=== PATIENT | female | born 1950 | race Caucasian/White ===

== ENCOUNTER 2016-12-04 09:20 | Emergency (ER) | payer MEDICARE, MEDICAID ==
[~2016-12-04] VITALS: Ht 157.5 cm; Wt 56.8 kg
[~2016-12-04 09:20] MED LIST: AMLO5TAB2 PO; ARIP5TAB5 PO; ASPI-628 PO; ATEN25TA PO; DIAZ5TAB3 PO; FLUO20CA25 PO; GABA800T2 PO; HYDR-4003 PO; LISI40TA PO; LORA-305 PO; MORP-33 PO; POLY17PO6 PO; TRAZ300T3 PO
[2016-12-04 09:21] VITALS: BP 124/84; PULSE 86; RESP 19; O2SAT 100
--- NOTE | 2016-12-04 09:21 | ED.REPORT ---
HPI-Chest Pain 40 and Over Date of Service Dec 04, 2016 ED Provider: Dr. Anna Pt is a 66 y/o female w/ a hx of CAD, HTN, Alzheimer's, alcohol abuse, presenting to the ED c/o right-sided CP w/ radiation to the back onset 5 days ago. The patient has been experiencing recurrent episodes of syncope which have happened previously but are increasing in frequency within the past 1 week. She was recently placed on Duloxetine and says that many of her medications already make her dizzy s the additional medication may be worsening her condition. She woke up experiencing chest pain 5 days ago which has been gradually worsening since onset and is exacerbated with movement and deep breathing. She says that when she breaths she feels a popping sensation. Pt denies recent illness, cough , fever. She does drink wine daily. Nursing Notes Stated Complaint: SYNCOPE/CHEST PAIN Chief Complaint: Chest Pain Nursing Notes Reviewed: Yes Allergies: Coded Allergies: Penicillins (Verified Allergy, Severe, 06/29/15) Scheduled Atenolol (Atenolol) 25 Mg Tablet 25 MG PO DAILY Duloxetine (Duloxetine) 20 Mg Capsule.dr 20 MG PO DAILY Gabapentin (Gabapentin) 800 Mg Tablet 800 MG PO QID Lisinopril (Lisinopril) 40 Mg Tablet 40 MG PO DAILY Oxycodone (Roxicodone) 5 Mg Tablet 5 MG PO TID Trazodone (Trazodone) 300 Mg Tablet 400 MG PO HS Scheduled PRN Oxycodone (Roxicodone) 5 Mg Tablet 2.5-5 MG PO QID PRN PRN For Pain General Time Seen by MD: 09:26 Chief Complaint Chest pain Hx Obtained From: Patient Arrived By: Walk-in Sudden in Onset?: No Onset Occurred: 5 days ago Symptom Duration: Since onset Location: : Chest right Quality: Painful, Pleuritic Radiation: : Back Migration/Movement: Reports: None Severity: Current: Mild Severity: Maximum: Moderate Similar Sx Previous: No Past Medical History Past Medical History Notes: Admit 06/2015 for Altered LOC, improved with medication holiday Past Medical History CAD HTN Alcoholism Osteoarthritis Alzheimer's ho polysubstance abuse Chronic bradycardia Peripheral neuropathy depression anxiety Past Surgical History Yes - left hip replacement 1989, appendectomy, tubal Smoking History Never Smoker Social History Lives with ex-. 25 years ago, still living together Alcohol Use: 1-3 per day Drug Use: Denies drug use Ambulatory Status Independent Review of Systems Constitutional: Denies: Fever Respiratory: Reports: Pleuritic pain, Denies: Non-productive cough Cardiovascular: Reports: Chest pain GI: Denies: Abdominal pain, Vomiting Neurologic: Reports: Dizziness, Lightheaded, Syncope Complete sys rev & neg: except as marked. Physical Exam Initial Vital Signs Vital Signs (First) Date Time Temp Pulse Resp B/P Pulse Ox O2 Delivery O2 Flow Rate FiO2 12/04/16 09:21 37.0 86 19 124/84 100 Room Air Initial VS: Reviewed, Vital signs normal Head / Eyes: Atraumatic, Normocephalic ENT: Mucous membranes moist, Conjunctiva normal Neck: Full range of motion Extremities: Vascular intact, Neuro intact, No swelling Skin: Warm, Dry, No cyanosis Neurologic: Alert, Oriented, Nonfocal Psychiatric: Mood/affect normal, Behavior normal, Normal thought content General/Constitutional: Awake, Alert, No acute distress, Cooperative, Not toxic appearing Appearance / Presentation: Positive: Uncomfortable Respiratory / Chest: Atraumatic, Breath sounds NL, Breath sounds = bilat, No respiratory distress, No rales, No rhonchi, No wheezing, No stridor, No chest wall deformity, No crepitus Right chest wall tenderness, reproducible Cardiovascular: Heart rate NL, Regular rhythm, Heart sounds NL, No gallop, No murmurs, No rubs, Pulses = bilaterally Abdomen: Soft, Non-tender, No guarding, No rebound, No distention Interpretation & Diagnostics Lab Results Interpretation Result Diagram: 12/04/16 0925 12/04/16 0925 Test 12/04/16 09:25 White Blood Count 4.5th/mm3 (3.8-10.1) Red Blood Count 2.84mil/mm3 (3.90-5.20) Hemoglobin 11.0g/dL (12.0-15.6) Hematocrit 32.6% (35.0-46.0) Mean Corpuscular Volume 114.8fL (81-100) Mean Corpuscular Hemoglobin 38.7pg (27.0-35.0) Mean Corpuscular Hemoglobin Concent 33.7% (32.0-37.0) Red Cell Distribution Width 13.0% (12.3-15.4) Platelet Count 157bil/L (150-400) Neutrophils (%) (Auto) 63.3% (40-74) Lymphocytes (%) (Auto) 30.7% (14-46) Monocytes (%) (Auto) 4.9% (4-12) Eosinophils (%) (Auto) 0.7% (0-5) Basophils (%) (Auto) 0.2% (0-3) Sodium Level 134mEq/L (134-144) Potassium Level 4.2mEq/L (3.5-5.2) Chloride Level 92mEq/L (97-108) Carbon Dioxide Level 23mmol/L (18-29) Blood Urea Nitrogen 15mg/dL (8-27) Creatinine 0.81mg/dL (0.57-1.00) Estimat Glomerular Filtration Rate 102mL/min (>59) Glucose Level 132mg/dL (60-99) Calcium Level 10.1mg/dL (8.5-10.1) Magnesium Level 1.8mg/dL (1.6-2.6) Total Bilirubin 0.5mg/dL (0.0-1.2) Aspartate Amino Transf (AST/SGOT) 29U/L (0-50) Alanine Aminotransferase (ALT/SGPT) 9U/L (0-32) Alkaline Phosphatase 38U/L (25-165) Troponin T 0.010ug/L (0.0-0.011) Total Protein 7.3g/dL (6.4-8.4) Albumin 4.5g/dL (3.4-5.0) Alcohols 29mg/dL (0-10) ECG Interpretation ECG Interpretation: Sinus rhythm rate 88 T wave inversion isolated to V2 Time: 09:32 Interpreted by: ED physician Normal ECG Interpretation: No acute ischemic changes X-Ray Chest Interpretation Chest Xray Interpretation: IMPRESSION: No acute pulmonary process. Dictated by: Tara Georges M.D. on 12/04/2016 at 10:15 Approved by: Tara Georges M.D. on 12/04/2016 at 10:15 View: Portable, 1 view Interpretation / Wet Read by: Interpret - Radiologist CT Chest Interpretation IMPRESSION: 1. No visualized pulmonary embolism. 2. Lungs are clear. 3. Low attenuation foci, nonspecific. Thyroid ultrasound may be obtained as clinically indicated for additional evaluation. Dictated by: Tara Georges M.D. on 12/04/2016 at 10:59 Approved by: Tara Georges M.D. on 12/04/2016 at 11:02 ADDENDUM: COMPARISON: [facility], CT, PE STUDY (CTA CHEST), 03/09/2014, 13:28. The above study was reviewed with Dr. Joaquin Man on 12/04/16 at 11:10 AM. There is slight irregularity of the anterior right second rib as well as cortical offset of the anterior left third rib. Given patient's history of anterior chest pain, findings are suspected to be related to subacute rib fractures. Dictated by: Tara Georges M.D. on 12/04/2016 at 11:12 Approved by: Tara Georges M.D. on 12/04/2016 at 11:13 Study type: CT pulm angiogram Interpretation / Wet Read by: Interpret - Radiologist Re-Eval/Medical Decision Med Decision/Clinical Course Patient presents complaining of right sided focal sharp chest wall pain. This seems to correlate to a anterior rib fracture. Rib fracture likely secondary to a fall. Patient states that her syncopal episodes are not new and have been previously worked up. There is no evidence of acute coronary syndrome, pulmonary embolism, or other life-threatening pathology at this time. She is neurologically intact without a headache, equal pupils, no indication at this time for a head CT. Will prescribe pain medication. Strongly cautioned about coingestion with alcohol. Return and follow-up precautions given. Source of Hx: Old records Time of Eval: 11:20 Re-Evaluation/Progress Note: Pt rechecked. Discussed imaging and lab findings. Informed pt of plan for discharge. Pt understands and agrees with plan for discharge. F/U instructions and RTER warnings given. All questions addressed. Consultation : Referral / Consult Name: Tara Georges MD Call Returned at: 11:10 Advance Agent: Agrees with eval, Agrees with plan Note: Discussed case with radiologist regarding my wet read of a rib fracture that was not called on the official read. Will review and call back. Counseled Regarding: Diagnosis, Lab results, Need for follow-up, When/why to return to ED Discharge & Departure Primary Impression: Right rib fracture Encounter type: initial encounter Rib fracture type: single rib Fracture type: closed Qualified Code: S22.31XA - Fracture of one rib, right side, initial encounter for closed fracture Additional Impression: Syncopal episodes Syncope type: unspecified Qualified Code: R55 - Syncope and collapse Disposition: Home Discharge Condition All VS Reviewed: Yes Condition: Stable Patient Instructions: Rib Fracture (ED), Syncope (ED) Additional Instructions: The CT scan of your chest showed that you have a rib fracture on the right which I suspect is causing your pain. It is quite small and will only require symptomatic management. Make sure you take multiple deep breaths during the day to ensure you do not develop pneumonia caused sometimes by shallow breaths. Labs and EKG today were reassuring. There is no sign of heart attack or heart muscle damage. I would like you to continue to discuss your episodes of lightheadedness with your primary care doctor. Take Ibuprofen 600 mg every 6 hours as needed for aching pain. Take Oxycodone 1- 2 tabs every 6 hours as needed for severe or breakthrough pain. Do not consume alcohol or other sedating medications, or drive while taking this medication. Return to the emergency department if you develop uncontrolled pain, worsening shortness of breath, fever, severe cough, or for other concerning symptoms. Follow-up with your primary care doctor in 2-3 days for a recheck. Referrals: FRANK VALENCIA DO (PCP) Scribe Attestation Portions of this note were transcribed by Trent Rebollar. I, Dr. Anna personally performed the history, physical exam and medical decision-making; I reviewed and confirmed the accuracy of the information in the transcribed note. copies to: FRANK VALENCIA Timothy S DO Dec 04, 2016 09:21 TRENT REBOLLAR Dec 04, 2016 09:30
[2016-12-04] MEDS ORDERED: Ondansetron 2 mg/mL 2 mL Inj IVPUSH PRN (09:35)
[2016-12-04 09:43] LABS: BASOPHILS % (AUTO) 0.2 % (0-3); EOSINOPHILS % (AUTO) 0.7 % (0-5); MONOCYTES % (AUTO) 4.9 % (4-12); Mean Corpuscular Hemoglobin 38.7 pg (27.0-35.0); Mean Corpuscular Volume 114.8 fL (81-100); NEUTROPHILS % (AUTO) 63.3 % (40-74); Platelet Count 157 bil/L (150-400)
[2016-12-04 09:52] LABS: TROPONIN T 0.01 ug/L (0.0-0.011)
[2016-12-04 10:03] LABS: Magnesium 1.8 mg/dL (1.6-2.6)
--- NOTE | 2016-12-04 10:16 | DRSVH ---
PROCEDURE: X-RAY CHEST ONE VIEW, PORTABLE ([id number]) INDICATIONS: CP TECHNIQUE: One view of the chest was acquired. COMPARISON: [facility], , CHEST 2 VIEW, 11/06/2015, 10:36. FINDINGS: Surgical changes and devices: None. Lungs and pleura: No pleural effusions or pneumothorax. Lungs are clear. Mediastinum: Mediastinal contours appear normal. Heart size is normal. Bones and chest wall: No suspicious bony lesions. Overlying soft tissues appear unremarkable. IMPRESSION: No acute pulmonary process. Dictated by: Tara Georges M.D. on 12/04/2016 at 10:15 Approved by: Tara Georges M.D. on 12/04/2016 at 10:15
[2016-12-04 10:46] VITALS: BP 142/79; PULSE 71; RESP 11; O2SAT 99
[2016-12-04] MEDS ORDERED: OXYC-474 PO ×2 (10:50→11:34)
[2016-12-04] MEDS ORDERED: DULO20CA18 PO (10:50)
[2016-12-04] MEDS ORDERED: GABA800T2 PO (10:50)
--- NOTE | 2016-12-04 11:03 | DRSVH ---
PROCEDURE: CT ANGIO CHEST PULMONARY EMBOLISM ([id number]) INDICATIONS: chest pain TECHNIQUE: After the administration of intravenous contrast, 2 mm thick sections acquired from the pulmonary api sebastien to the posterior costophrenic angles. 3-dimensional maximum intensity projection (MIP) coronal a nd sagittal reformats were then acquired through the thorax. For radiation dose reduction, the follo wing was used: automated exposure control, adjustment of mA and/or kV according to patient size. COMPARISON: [facility], CT, CHEST ANGIO-PE, 09/05/2009, 3:51. FINDINGS: Image quality: Excellent. Pulmonary arteries: Pulmonary arteries are normal in size, and demonstrate no intraluminal filling d efects to suggest central pulmonary embolism. Lungs and pleura: Lungs are clear. No pleural effusions or pneumothorax. Central and peripheral ai rways are patent. Mediastinum: Heart size is normal, without pericardial effusion. No mediastinal or hilar adenopathy . Thoracic aorta is normal in caliber and enhancement. Esophagus is normal in caliber, without hiat al hernia. Bones and chest wall: No suspicious bony lesions. Ribs and thoracic spine appear intact throughout. Thyroid gland bilateral low attenuation foci are present within the thyroid, appearing new since 09/05/09. No axillary or supraclavicular adenopathy. Bilateral breast implants. Abdomen: Visualized upper abdominal solid organs appear normal in the early arterial phase of enhanc ement. IMPRESSION: 1. No visualized pulmonary embolism. 2. Lungs are clear. 3. Low attenuation foci, nonspecific. Thyroid ultrasound may be obtained as clinically indicated for additional evaluation. Dictated by: Tara Georges M.D. on 12/04/2016 at 10:59 Approved by: Tara Georges M.D. on 12/04/2016 at 11:02
[2016-12-04 11:56] VITALS: BP 138/72; PULSE 71; RESP 12; O2SAT 99
== END 2016-12-04 11:57 | disposition home or self-care (01) ==
LOC: SED 09:20
DX: S22.31XA Fracture of one rib, right side, initial encounter for closed fracture (principal); W19.XXXA Unspecified fall, initial encounter; Y93.89 Activity, other specified; Y92.89 Other specified places as the place of occurrence of the external cause; Y99.8 Other external cause status; R55 Syncope and collapse; R42 Dizziness and giddiness; I11.9 Hypertensive heart disease without heart failure; I25.10 Atherosclerotic heart disease of native coronary artery without angina pectoris; F41.8 Other specified anxiety disorders; G30.9 Alzheimer's disease, unspecified; Z96.642 Presence of left artificial hip joint; Z98.890 Other specified postprocedural states; Z88.0 Allergy status to penicillin
CPT/HCPCS: 36415; 71010; 71275; 80053; 83735; 84484; 85025; 93005; 96374; 96375; 96376; 99285; G0480; J2270; J2405; Q9967

== ENCOUNTER → 2016-12-09 | Day surgery (SDC) | payer MEDICARE, MEDICAID ==
[~2016-12-09] VITALS: Ht 157.5 cm; Wt 57.0 kg
[~2016-12-09] MED LIST changes: -AMLO5TAB2 PO; -ARIP5TAB5 PO; -ASPI-628 PO; -DIAZ5TAB3 PO; +DULO20CA18 PO; -FLUO20CA25 PO; -HYDR-4003 PO; +Ketamine 10 mg/mL 20 mL Inj ONE; -LORA-305 PO; +Lactated Ringer's 1,000 ML IV ONE; +Lactated Ringer's 1,000 ML IV SCH; -MORP-33 PO; +MetoCLOpramide 5 mg/mL 2 mL Inj IVPUSH PRN; +OXYC-474 PO; +Ondansetron 2 mg/mL 2 mL Inj IVPUSH PRN; +Ondansetron 2 mg/mL 2 mL Inj ONE; -POLY17PO6 PO; +Propofol 10,000 mCg/mL 20 mL Inj ONE; +fentaNYL-PF 50 mCg/mL 2 mL Inj ONE
--- NOTE | 2016-12-09 07:18 | PCM.HPANE ---
Patient Data Surgeon Admitting Provider: Attending Provider:Bernard Sunshine MD Primary Care Physician:Maame Pitts DO Other Provider:Tatiana Condeingham Anesthesia Reason for Visit Right Upper Quadrant Pain, Acute Alcoholic Ht/WT & BMI Body Mass Index Allergies Coded Allergies: Penicillins (Verified Allergy, Severe, 12/09/16) morphine (Verified Allergy, Unknown, 12/09/16) Past Anesthesia History Anesthesia History: Denies:: Abnormal Airway, Anesthesia Reactions, Difficult Intubation Diabetes History Hx Diabetes?: No MRSA MRSA: No Medications Hypertension Medication: Yes Home Meds Incl Beta Sam: Yes Date Beta Sam Taken: Dec 09, 2016 Time Beta Sam Taken: 03:30 Active Scripts Oxycodone (Roxicodone)5 Mg Tablet2.5-5 Mg PO QID PRN For Pain #12 TABLET Prov:Joaquin Anna DO 12/04/16 Reported Medications Oxycodone (Roxicodone)5 Mg Tablet5 Mg PO TID Ref 0 12/04/16 Gabapentin 800 Mg [id number] Mg PO QID Ref 0 12/04/16 Duloxetine 20 Mg Capsule.dr20 Mg PO DAILY Ref 0 12/04/16 Trazodone 300 Mg Rqjvjv156 Mg PO HS #30 TABLET Ref 0 03/25/14 Lisinopril 40 Mg Tuhcze30 Mg PO DAILY 30 Days Ref 0 03/25/14 Atenolol 25 Mg Mzcgdo79 Mg PO DAILY #30 TABLET Ref 0 03/25/14 Discontinued Reported Medications Aspirin (Aspir 81)81 Mg Tablet.dr81 Mg PO DAILY Ref 0 08/20/14 Morphine Sulfate ER 30 Mg Tablet.er30 Mg PO Q12 08/20/14 Aripiprazole (Abilify)5 Mg Tablet5 Mg PO DAILY 30 Days Ref 0 08/20/14 Hydrocodone-Acetaminophen 5-325 mg 1 Each Tablet1 Each PO Q6 PRN For Pain Ref 0 03/25/14 Gabapentin 800 Mg Uevvcr241 Mg PO TID 30 Days Ref 0 03/25/14 Fluoxetine 20 Mg Bkezagh95 Mg PO DAILY 30 Days 03/25/14 Diazepam 5 Mg Tablet5 Mg PO TID PRN For Anxiety #90 TABLET Ref 0 03/25/14 Amlodipine 5 Mg Tablet5 Mg PO DAILY 30 Days Ref 0 03/25/14 Discontinued Scripts Lorazepam (Ativan)2 Mg Tablet2 Mg PO prn PRN For Alcohol Cessation #10 TABLET Ref 0 2mg ativan as below: 12/02 2mg ativan 6pm and midnight 91 2mg 6am, 2pm, midnight 9/2 2mg 6am, 6pm 93, 1mg (1/2 pill) 6am, 2pm, midnight 9/4, 1mg 6am, 6pm 95 1mg 6am and done Prov:Aleja Hope MD 12/03/15 Hydrocodone-Acetaminophen 5-325 mg 1 Each Tablet1 Tablet PO Q6H PRN For Pain # 15 TABLET Ref 0 Prov:Roman Snell MD 09/22/15 Polyethylene Glycol 3350 (Miralax)17 Gm Powd.pack17 Gm PO DAILY PRN For Constipation #30 Prov:Gabriel Burkett MD 07/02/15 History History of ENT Problems?: No HEENT History: Denies:: Abnormal Airway Cataracts Difficult Intubation Dysphagia Sinus Problem Denture Type: Full- Upper Teeth Condition: Within Normal Limits Hx of Heart Problems?: Yes Cardiovascular History: Positive for:: Chest Pain Denies:: Cardiac Surgery Congestive Heart Failure Edema Heart Murmur Hypertension Irregular Heartbeat Pacemaker Thrombophlebitis Hx of Respiratory Problem?: Yes Respiratory History: Positive for:: Pneumonia Denies:: Asthma COPD Chest Surgery Dyspnea Emphysema Hemoptysis Tuberculosis Hx Neurologic Problems?: Yes Neurological History: Positive for:: Dizziness Headaches (migraines) Seizures Denies:: Alzheimer's Disease CVA Dementia Multiple Sclerosis Parkinson's Disease Hx of GI Problems?: Yes Hx of Problems?: Yes Genitourinary History: Positive for:: Urinary Tract Infection Denies:: HX of Hemodialysis Kidney Stones Female Hx: Denies:: Currently Endometriosis Pelvic Inflammatory Problems with Breasts? Hx Musculoskeletal Problems?: Yes Musculoskeletal History: Positive for:: Back Injury Joint Replacement (L hip replacement) Musculoskeletal Trauma Hx of Psycho/Social Problems?: Yes Psycho Social History: Positive for:: Anxiety Bipolar Disorder Hx Depression Denies:: Suicide Attempt Hx Surgeries?: Yes (Hip replacement) Hx Any Other Health Problems?: No Other History: Positive for:: Hospitalization Denies:: Cancer Endocrine Disease Thyroid Disease History Blood Transfusions: Positive for:: Blood Transfusions Denies:: Blood Transfuse Reaction Hx Diabetes: No Hx Alcohol Use: YesHx Substance Use: No Smoking Status: Never Smoker Have You Smoked inLast 12 mo: No Stop/Bang Treated for Sleep Apnea?: No Do You Have a CPAP Machine?: No DAVIN Risk Assessment: Low Risk, <3 Yes Risk Assessment Category Category 1A: Patient has history of documented sleep apnea, and HAS NOT received any narcotic, sedative or anesthesia administration during this stay. Category 1B: Patient has history of documented sleep apnea, and HAS received any narcotic , sedative or anesthesia administration during this stay Category 2: Patient has SUSPECTED Obstructive Sleep Apnea, and HAS received any narcotic , sedative or anesthesia administration during this stay. Category 3: Patient has SUSPECTED Obstructive Sleep Apnea and HAS NOT received narcotic, sedative or anesthesia administration during this stay. Category 4: Outpatient in Procedural Areas with known sleep apnea or who screen positive for High Risk via the STOP/BANG questionnaire. Exam Exam General Appearance: Alert, Oriented X3, Cooperative, No Acute Distress HEENT/AIRWAY: MP 2 Lungs: Clear to Auscultation, Normal Air Movement Heart: Exam Unremarkable, Regular Rate/Rhythm, No Murmurs/Rubs/Gallops Plan Impression Patient chart reviewed, patient interviewed and anesthestic plan with risks, benefits, and alternatives discussed, and informed consent obtained. NPO per Anesth. Guidelines: Yes ASA Physical Status: ASA3 Severe Disease Anesthetic Plan: MAC Bene/Risks/Altern/Consents: Yes HP Complete Prior to Induction: Yes Scott Jesus MD Dec 09, 2016 07:18
[2016-12-09 08:28] VITALS: BP 153/103; PULSE 86; RESP 16; O2SAT 98
--- NOTE | 2016-12-09 09:02 | PCM.ENDEGD ---
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 Scope introduced esophagus. Esophagus showed normal shiny whitish mucosa consistent with squamous cell component. Z line was at 40 cm from the incisors. Less than 2 cm of salmon- colored mucosa protruding above the Z line with displacement. Narrow banding done. No ulcer mass erosions noted. Four-quadrant biopsies obtained every 2 cm. Scope further advanced to the stomach. The entire stomach show atrophy of the rugae folds as well as redness edema consistent with diffuse gastropathy. Biopsies obtained from proximal to distal stomach. Cardia fundus body antrum pylorus were all visualized. Retroflexion was done. Stomach was easily inflated and deflatable using air. Scope further advanced to the distal duodenum. Duodenum revealed normal villous structures with normal appearing folds without any mass ulcer erosion. Impression Possible Garcia's Diffuse gastropathy Recommendation Await biopsies Presedation Assessment Risks and Benefits Informed consent was obtained from the patient after all risks and benefits including but not limited to drug reaction, infection, pain, bleeding, perforation, as well as alternatives were discussed. Patient monitoring Continuous pulse oximetry, cardiac monitoring, blood pressure monitoring, IV access, and oxygen at 2L per nasal cannula. Complications There were no periprocedural complications identified. Post Procedure Plan Post Procedure Recommendations 1. Restrict activities today. 2. Resume normal activities in the morning. 3. Resume medications. 4. GERD behavioral modification: - Avoid fatty, acidic, spicy, large meals - Do not lie down after meals - Do not eat or drink anything for at least 2 1/2 hours before going to bed at night - Discontinue tobacco and alcohol - Decrease or avoid caffeine - Avoid chocolate and mints - Decrease weight - Avoid aspirin and non steroidal anti-inflammatory agents (NSAID) such as Aleve, Advil, Mobic, Naproxen, Ibuprofen, etc 5. Add proton pump inhibitor. Take 30 minutes before 1st meal of the day. 6. Patient informed of normal post procedure side effects as bloating, drowsiness, blood streaking in the stool 7. If gastric biopsy reveal H.pylori, continue with appropriate treatment 8. If small bowel biopsy reveals celiac, continue with appropriate treatment 9. Please don't hesitate to call me with any questions Bernard Sunshine MD Dec 09, 2016 09:02
--- NOTE | 2016-12-09 09:29 | PCM.ENDCOL ---
Colonoscopy Date of Service: Dec 09, 2016 Physician Bernard Sunshine MD Pre Procedure Diagnosis: Screening Post Procedure Dx & Findings: Palates hemorrhoids diverticulitis Procedure Colonoscopy PROCEDURE IN DETAIL: Sedation by anesthesiology Prep fair Withdrawal time 16 minutes After unremarkable rectal examination the Olympus video colonoscope was inserted patient's anal canal and was advanced to cecum. Landmarks were identified including the ileocecal valve and appendiceal orifice. Scope was withdrawn systematically. Visualized colonic mucosa showed healthy shiny mucosa with normal healthy-appearing vasculature. In the sigmoid colon there was a 1 mm polyp which was removed completely using cold forceps. Patient had fishman diverticula from the sigmoid to the cecum. Most diverticuli were localized in the sigmoid colon. In the rectum retroflexion was done which showed hemorrhoids. Anal canal was inspected carefully on the way out and hemorrhoids noted. Impression Polyp 1 status post complete removal Diverticuli Fair prep Hemorrhoids Recommendation Repeat colonoscopy 2 years Diverticular diet Presedation Assessment Risks and Benefits Informed consent was obtained from the patient after all risks and benefits including but not limited to drug reaction, infection, pain, bleeding, perforation, as well as alternatives were discussed. Patient monitoring Continuous pulse oximetry, cardiac monitoring, blood pressure monitoring, IV access, and oxygen at 2L per nasal cannula. Complications There were no periprocedural complications identified. Post Procedure Plan Post Procedure Recommendations 1. Restrict activities today. 2. Resume normal activities in the morning. 3. Resume medications. 4. Patient informed of normal post procedure side effects as bloating, drowsiness, blood streaking in the stool. 5. average risk CRCS. If colon polyps come back as: -Hyperplastic- can repeat colonoscopy in 10 years -Tubular adenoma- repeat colonoscopy in 5 years -Tubulovillous/villous adenoma- repeat colonoscopy in 3 years -If any dysplasia- return to clinic as soon as possible 6. Please don't hesitate to call me with any questions. Bernard Sunshine MD Dec 09, 2016 09:29
[2016-12-09 09:33] VITALS: BP 140/84; PULSE 70; RESP 14; O2SAT 98
[2016-12-09 09:42] VITALS: BP 142/83; PULSE 67; RESP 14; O2SAT 94
[2016-12-09 09:57] VITALS: BP 161/94; PULSE 66; RESP 14; O2SAT 94
--- NOTE | 2016-12-10 17:04 | PATH ---
SURGICAL PATHOLOGY Attending Physician:Bernard Sunshine M.D. CASE STATUS: Signed Out PATIENT NAME: SOHAIL BROWN PID: [id number] : 1950 DATE COLLECTED:12/09/2016 19:50 SPECIMEN: 1: Gastric, Biopsy 2: Esophagus, Biopsy 3: Colon, Polyp CLINICAL HISTORY: 1). GASTRIC BIOPSY 2). DISTAL ESOPHAGUS 3). SIGMOID POLYP X 1 FINAL DIAGNOSIS: 1. Stomach, Biopsy: Gastric antral and body mucosa with no diagnostic abnormality. Helicobacter organisms not identified. Negative for intestinal metaplasia, dysplasia or malignancy. 2. Distal Esophagus, Biopsy: Squamocolumnar junctional mucosa with chronic mildly active inflammation. Negative for intestinal metaplasia, dysplasia or malignancy. 3. Sigmoid Colon, Biopsy: Tubular adenoma. ICD10: R10.13 D12.5 GROSS DESCRIPTION: The specimen is received in three formalin filled containers labeled with the patient's name. 1). The specimen is labeled "gastric" and consists of 2 portions of tissue which aggregate to 0.3 x 0.2 x 0.2 CM. The specimen is entirely submitted in cassette 1A. 2). The specimen is labeled "distal esophagus" and consists of 3 tiny portions of tissue which aggregate to 0.2 x 0.2 x 0.2 CM. The specimen is entirely submitted in cassette 2A. 3). The specimen is labeled "sigmoid polyp" and consists of a 0.2 x 0.2 x 0.2 CM portion of tissue which is entirely submitted in cassette 3A. 12/09/2016FL ICD-9 CODES: CPT CODES: 1: 26751 2: 68732 3: 22692 Electronically Signed Out Roman Meyers MD, Ph.D. [facility] [address], [place] [address] Technical component performed at [facility], [facility] [address], [place], [address]
--- NOTE | 2016-12-13 08:12 | PCM.ANEP1 ---
Post Anesthesia PACU Phase 1 Assessment Anesthetic Administered: MAC Level of Alertness: Awake, talking CROSS's with Equal Strength: Yes Pain: No Nausea or Vomiting: No CV Function & Hydration Stable: Yes Airway Device: none Lungs: Clear to Auscultation, Normal Air Movement Dermatome Level: Full Sensation PACU Phase 2 Assessment Complications: No Follow up Care: No Patient Instructions Provided: N/A Scott Jesus MD Dec 13, 2016 08:12
== END | disposition home or self-care (01) ==
LOC: END 01:05
PROVIDERS: ATTEND Internal Medicine
DX: Z12.11 Encounter for screening for malignant neoplasm of colon (principal); D12.5 Benign neoplasm of sigmoid colon; K57.30 Diverticulosis of large intestine without perforation or abscess without bleeding; K64.8 Other hemorrhoids; K31.9 Disease of stomach and duodenum, unspecified; B18.2 Chronic viral hepatitis C; I10 Essential (primary) hypertension; F32.9 Major depressive disorder, single episode, unspecified; F41.9 Anxiety disorder, unspecified; Z86.73 Personal history of transient ischemic attack (TIA), and cerebral infarction without residual deficits; Z87.891 Personal history of nicotine dependence; F10.10 Alcohol abuse, uncomplicated
CPT/HCPCS: 43239; 45380; 88305; J2250; J2405; J2704; J3010; J7120